=== PATIENT | female | born 1980 | race African-American/Black ===

== ENCOUNTER → 2017-02-25 | Outpatient (CLI) | payer OTHER ==
[2017-02-25 10:35] LABS: BASO % 0.6 % (0.0-1.0); EOS # 0.1 10^3/uL (0.0-0.50); HEMATOCRIT 42.7 % (36.0-47.0); IMMATURE GRANULOCYTE % 0.4 % (0-0); LYMPH # 1.1 10^3/uL (1.5-4.5); LYMPH % 21.4 % (24.0-44.0); MEAN CORPUSCULAR HEMOGLOBIN 27.2 pg (27.0-33.0); MEAN CORPUSCULAR HGB CONC 32.8 g/dl (32.0-36.5); MEAN CORPUSCULAR VOLUME 82.9 fl (80.0-96.0); MONO # 0.6 10^3/uL (0.0-0.8); MONO % 12.3 % (0.0-5.0); NEUTROPHILS # 3.3 10^3/uL (1.8-7.7); NEUTROPHILS % 64.3 % (36.0-66.0); PLATELET COUNT, AUTOMATED 166 10^3/uL (150-450); RED BLOOD COUNT 5.15 10^6/uL (4.00-5.40); RED CELL DISTRIBUTION WIDTH 13.8 % (11.5-14.5); WHITE BLOOD COUNT 5.1 10^3/uL (4.0-10.0)
[2017-02-25 11:11] LABS: ALBUMIN 3.7 GM/DL (3.2-5.2); ALBUMIN/GLOBULIN RATIO 1.28 (1.00-1.93); ALKALINE PHOSPHATASE 76 U/L (45-117); ALT/SGPT 24 U/L (12-78); ANION GAP 7 MEQ/L (8-16); AST/SGOT 15 U/L (7-37); BLOOD UREA NITROGEN 7 MG/DL (7-18); CALCIUM LEVEL 8.6 MG/DL (8.5-10.1); CARBON DIOXIDE LEVEL 28 MEQ/L (21-32); CHLORIDE LEVEL 108 MEQ/L (98-107); CREATININE FOR GFR 0.87 MG/DL (0.55-1.02); GLOMERULAR FILTRATION RATE > 60.0 (>60); GLUCOSE, FASTING 77 MG/DL (70-105); LIPASE 121 U/L (73-393); SODIUM LEVEL 143 MEQ/L (136-145); TOTAL PROTEIN 6.6 GM/DL (6.4-8.2)
== END ==
LOC: M LAB 09:40
DX: R19.7 Diarrhea, unspecified (principal)
CPT/HCPCS: 83690

== ENCOUNTER → 2017-02-25 | Outpatient (REF) | payer OTHER | LOC: M LAB REF 12:37 | DX: R19.7 Diarrhea, unspecified (principal) | CPT/HCPCS: 87186 ==

== ENCOUNTER → 2017-02-26 | Outpatient (REF) | payer OTHER | LOC: M LAB REF 13:17 | DX: R19.7 Diarrhea, unspecified (principal) ==

== ENCOUNTER → 2017-04-23 | Outpatient (CLI) | payer OTHER | LOC: M RAD 16:47 | DX: Z34.81 Encounter for supervision of other normal pregnancy, first trimester (principal); Z3A.01 Less than 8 weeks gestation of pregnancy | CPT/HCPCS: 76801 ==

== ENCOUNTER → 2017-04-30 | Outpatient (CLI) | payer OTHER | LOC: M RAD 16:51 | DX: Z34.82 Encounter for supervision of other normal pregnancy, second trimester (principal); Z3A.14 14 weeks gestation of pregnancy ==

== ENCOUNTER 2018-02-26 12:20 | Day surgery (SDC) | payer OTHER ==
[~2018-02-26] VITALS: Ht 172.7 cm; Wt 107.0 kg
[~2018-02-26 12:20] MED LIST: B121000T PO; CITRTAB18 PO; D32000TA PO; FLINCHW9 PO; GLYCOPYRROLATE INJ 0.2 MG/ML 2 ML VIAL As Ordered ONE; HYDROmorphone HCL 2 MG/ML 1ML VIAL (J1170) As Ordered ONE; LIDOCAINE 1% MDV 20ML VIAL SQ PRN; LIDOCAINE 2% INJ 100 MG/5 ML SDV (FOR ANES.) As Ordered ONE; LR 1,000 ML IV ONE; MIDAZOLAM INJ 2 MG/2 ML VIAL (J2250) As Ordered ONE; NEOSTIGMINE 10 MG/10 ML VIAL (J2710) As Ordered ONE; ONDANSETRON 4MG/2ML VIAL (J2405) As Ordered ONE; PERCOCET PO; PROPOFOL 200 MG/20 ML VIAL As Ordered ONE; ROCURONIUM BROMIDE 50 MG/5 ML VIAL As Ordered ONE; dexameTHASONE 4 MG/ML 1ML VIAL (J1100) As Ordered ONE; fentaNYL 100 MCG/2 ML INJECTION (J3010) As Ordered ONE
[2018-02-26 12:44] LABS: HEMATOCRIT 46.5 % (36.0-47.0); HEMOGLOBIN 15.2 g/dl (12.0-15.5); MEAN CORPUSCULAR HEMOGLOBIN 27.1 pg (27.0-33.0); MEAN CORPUSCULAR HGB CONC 32.7 g/dl (32.0-36.5); MEAN CORPUSCULAR VOLUME 82.9 fl (80.0-96.0); PLATELET COUNT, AUTOMATED 174 10^3/uL (150-450); RED BLOOD COUNT 5.61 10^6/uL (4.00-5.40); WHITE BLOOD COUNT 4.8 10^3/uL (4.0-10.0)
[2018-02-26 13:11] LABS: HCG, SERUM QUALITATIVE NEGATIVE (NEGATIVE)
[2018-02-26] MEDS ORDERED: BUPIVACAINE HCL 0.25% 30 ML VIAL As Ordered ONE (14:03)
[2018-02-26] MEDS ORDERED: fentaNYL 100 MCG/2 ML INJECTION (J3010) As Ordered ONE (16:41)
[2018-02-26] MEDS ORDERED: PROMETHAZINE INJ 25 MG/ML VIAL (J2550) IV PRN (18:15)
[2018-02-26] MEDS ORDERED: zolPIDEM TARTRATE 10MG TAB PO PRN (18:15)
[2018-02-26] MEDS ORDERED: MORPHINE 4 MG/ML 1ML VIAL/SYRINGE (J2270) IV PRN (18:15)
[2018-02-26] MEDS ORDERED: LR 1,000 ML IV SCH (18:15)
[2018-02-26] MEDS ORDERED: HYDROMORPHONE HCL 0.5 MG/ 0.5 ML SYRINGE (J1170 PER 1) IV PRN (18:15)
[2018-02-26] MEDS ORDERED: fentaNYL 100 MCG/2 ML INJECTION (J3010) IV PRN (18:15)
[2018-02-26] MEDS ORDERED: PERCOCET 5MG/325MG TAB PO PRN ×2 (18:15)
[2018-02-26] MEDS ORDERED: ONDANSETRON 4MG/2ML VIAL (J2405) IV PRN (18:15)
[2018-02-26 19:00] VITALS: BP 141/85
[2018-02-26 19:30] VITALS: BP 155/95
[2018-02-26 20:00] VITALS: BP 137/81
--- NOTE | 2018-02-26 20:12 | RO ---
DATE OF PROCEDURE: 02/26/2018 PREPROCEDURE DIAGNOSIS: 1. Fibroid uterus. 2. Abnormal uterine bleeding. POSTPROCEDURE DIAGNOSIS: 1. Fibroid uterus. 2. Abnormal uterine bleeding. PROCEDURE: 1. Robotic assisted laparoscopic hysterectomy. 2. Bilateral salpingectomy. 3. Cystoscopy. SURGEON: Maryse Raines MD GAS AND OIL SERVICER: Catherine Mcclain NP, Gus Bryan MD ANESTHESIA: General endotracheal anesthesia. ESTIMATED BLOOD LOSS: 100 mL INTRAVENOUS FLUIDS: 1800 mL of lactated Ringer's solution. URINE OUTPUT: 150 mL PREOPERATIVE ANTIBIOTICS: 2 grams of Ancef. OPERATIVE FINDINGS: Patient with markedly enlarged fibroid uterus. Normal appearing ovary. Bilateral fallopian tubes with no right ovary consistent with her history of right oophorectomy. CYSTOSCOPIC FINDINGS: Normal bladder mucosa. Bilateral jets were observed. No foreign objects seen. DESCRIPTION OF OPERATION: After informed consent was obtained and written consent was reviewed, the patient was brought to the operating room where general endotracheal anesthesia was obtained. She was then placed in the lithotomy position, and was prepped and draped in a normal sterile fashion. A time out in the operating room was then performed identifying the patient, procedure to be performed as well as drug allergies. A speculum was then placed revealing the cervix. The anterior and posterior aspect of the cervix were stitched with #0 Vicryl and a large VCare uterine manipulator was then advanced through the cervical os for means to manipulate the uterus. A cervical cap as well as the vaginal sleeve was applied down into the vagina. Speculum was then removed. William catheter was then placed and set to gravity. Gloves were changed. Attention was then turned to the patient's abdomen where a Veress needle was placed through the umbilicus and a pneumoperitoneum was obtained with CO2 gas. The supraumbilical area was infused with 0.25% Marcaine. An incision was made in this area and a 12 mm trocar and sleeve was advanced through this incision. Laparoscope was then replaced revealing intraabdominal placement. Three additional ports were placed two to the left side of the patient's abdomen and one to the right. These areas were infused with 0.25% Marcaine and in each one of these areas incisions were made. A 8 mm trocar and sleeve was then advanced through each one of these incisions under direct visualization. Next the Da Ynes was docked utilizing the camera arm and two operative arms. The patient's abdomen was then inserted with the above noted findings. Bilateral salpingectomies were then performed. The right fallopian tube was placed in traction. It was transected at the level of the uterus using a vessel sealer. The mesosalpinx was further cauterized and ligated with good hemostasis noted. The specimen was then brought out through the port site. In a similar fashion the left fallopian tube was placed in traction and using the vessel sealer, the left fallopian tube was transected at the level of the uterus. The mesosalpinx was further dissected using the vessel sealer and the specimen was brought out through the port site. Next, the uteroovarian ligament bilaterally was then cauterized and ligated with good hemostasis noted. The round ligaments were cauterized and ligated with good hemostasis noted. Anterior lip of the broad ligaments were then cauterized and ligated with good hemostasis noted. This was done bilaterally and dissected along the bladder creating a bladder flap. The remainder of the broad and cartilage ligaments were then cauterized and ligated with good hemostasis noted. The uterine vessels were then skeletonized bilaterally and were cauterized and ligated with good hemostasis noted. Anterior and posterior colpotomies were made using monopolar. Unable to deliver the uterus through this vaginal incision. The Da Ynes was then undocked. At this point Dr. Bryan my second dietitian assistant played an essential role in morcellation of the uterine specimen. Once the specimen was morcellated and removed, the Da Ynes was then redocked. The vaginal cuff was then closed using #2-0 V-Loc system in a running fashion. The surgical sites were then irrigated and suctioned. Maggie was applied over the surgical carpenter and pneumoperitoneum was then released. Next, cystoscopy was performed. Utilizing a 70 degrees scope, this was advanced transurethrally to the bladder and the bladder was surveyed showing normal bladder mucosa and no foreign bodies. Bilateral jets were observed. The cystoscope was then removed. The bladder was drained. Gloves were changed. Attention was then turned to the patient's abdomen where all four port sites were closed with #4-0 Monocryl and was dressed with Dermabond. The patient was then taken out of the lithotomy position, was then awakened from general anesthesia and taken to recovery in stable condition. Counts were correct. Catherine Mcclain, my other case assistant also played an essential role during the surgery. She assisted with port placement and retraction and identification of structures.
[2018-02-26] MEDS: LR 1,000 ML IV SCH (20:40)
[2018-02-26 21:00] VITALS: BP 140/75
[2018-02-26 22:00] VITALS: BP 132/83
[2018-02-26 23:00] VITALS: BP 143/85
[2018-02-26] MEDS: PERCOCET 5MG/325MG TAB PO PRN (23:02)
[2018-02-27] VITALS: BP 132/75
[2018-02-27] MEDS: LR 1,000 ML IV SCH ×2 (02:15→10:15)
[2018-02-27 04:00] VITALS: BP 128/74
[2018-02-27] MEDS: PERCOCET 5MG/325MG TAB PO PRN ×2 (05:28→11:09)
[2018-02-27 07:11] LABS: HEMATOCRIT 40.8 % (36.0-47.0); HEMOGLOBIN 13.5 g/dl (12.0-15.5); MEAN CORPUSCULAR HEMOGLOBIN 27.7 pg (27.0-33.0); MEAN CORPUSCULAR HGB CONC 33.1 g/dl (32.0-36.5); MEAN CORPUSCULAR VOLUME 83.8 fl (80.0-96.0); PLATELET COUNT, AUTOMATED 166 10^3/uL (150-450); RED BLOOD COUNT 4.87 10^6/uL (4.00-5.40); WHITE BLOOD COUNT 9.8 10^3/uL (4.0-10.0)
[2018-02-27 08:00] VITALS: BP 118/66
== END 2018-02-27 12:00 | disposition home or self-care (01) ==
LOC: M SDC 12:20 → M PED 18:54 → M SDC 02-27 12:00
PROVIDERS: ATTEND Obstetrics & Gynecology
DX: D25.9 Leiomyoma of uterus, unspecified (principal); N93.9 Abnormal uterine and vaginal bleeding, unspecified; Z98.84 Bariatric surgery status
CPT/HCPCS: 36415; 58571; 84703; 85027; 86850; 86900; 86901; 88307; J0690; J1100; J1170; J2250; J2405; J2710; J3010

== ENCOUNTER → 2018-11-10 | Outpatient (CLI) | payer OTHER ==
[~2018-11-10] MED LIST changes: -GLYCOPYRROLATE INJ 0.2 MG/ML 2 ML VIAL As Ordered ONE; -HYDROmorphone HCL 2 MG/ML 1ML VIAL (J1170) As Ordered ONE; -LIDOCAINE 1% MDV 20ML VIAL SQ PRN; -LIDOCAINE 2% INJ 100 MG/5 ML SDV (FOR ANES.) As Ordered ONE; -LR 1,000 ML IV ONE; -MIDAZOLAM INJ 2 MG/2 ML VIAL (J2250) As Ordered ONE; -NEOSTIGMINE 10 MG/10 ML VIAL (J2710) As Ordered ONE; -ONDANSETRON 4MG/2ML VIAL (J2405) As Ordered ONE; -PROPOFOL 200 MG/20 ML VIAL As Ordered ONE; -ROCURONIUM BROMIDE 50 MG/5 ML VIAL As Ordered ONE; -dexameTHASONE 4 MG/ML 1ML VIAL (J1100) As Ordered ONE; -fentaNYL 100 MCG/2 ML INJECTION (J3010) As Ordered ONE
[2018-11-10 20:53] LABS: FREE T4 0.94 NG/DL (0.76-1.46); THYROID STIMULATING HORMONE 1.5 uIU/ML (0.358-3.740)
[2018-11-10 21:00] LABS: FOLLICLE STIMULATING HORMONE 4.4 mIU/mL
== END ==
LOC: M WUC 15:17
PROVIDERS: ATTEND Obstetrics & Gynecology
DX: N95.1 Menopausal and female climacteric states (principal)